=== PATIENT | female | born 1990 | race American Indian/Alaskan Native ===

== ENCOUNTER 2016-11-19 00:28 | Emergency (ER) | payer MEDICAID ==
[2016-11-19] MEDS ORDERED: TYLENOL PO ONE (03:44)
[2016-11-19] MEDS ORDERED: ZOFRAN ODT PO ONE (03:45)
[2016-11-19 04:34] LABS: Hematocrit 31.9 % (30.3-42.9); Hemoglobin 10.2 gm/dl (10.1-14.3); Mean Corpuscular HGB Conc 32 % (30-34); Mean Corpuscular Volume 80 fl (79-97); Platelet Count 359 K/mm3 (140-440); Red Blood Count 4.02 M/mm3 (3.65-5.03); Red Cell Distribution Width 17.5 % (13.2-15.2); White Blood Count 10.1 K/mm3 (4.5-11.0)
[2016-11-19 04:35] LABS: Blood Urea Nitrogen 9 mg/dL (7-17); Calcium 9.3 mg/dL (8.4-10.2); Carbon Dioxide 21 mmol/L (22-30); Glucose 105 mg/dL (65-100)
[2016-11-19 04:36] LABS: Anion Gap 20 mmol/L; Chloride 96.5 mmol/L (98-107); Sodium 133 mmol/L (137-145)
[2016-11-19 04:37] LABS: Mean Corpuscular Hemoglobin 25 pg (28-32)
[2016-11-19 08:47] LABS: Bilirubin,Urine NEG (Negative); Blood,Urine NEG (Negative); Ketones,Urine NEG (Negative); Leukocyte Esterase,Urine SM (Negative); Mucus,Urine FEW /HPF; Nitrite,Urine NEG (Negative); Protein,Urine <15 mg/dL mg/dL (Negative); Urobilinogen,Urine < 2.0 mg/dL (<2.0)
[2016-11-19 11:54] VITALS: BP 110/74
--- NOTE | 2016-11-19 12:34 | Emergency Department Report ---
ED Abdominal Pain HPI - General Chief Complaint: Headache Stated Complaint: 11 WKS W/POSS HIGH BP/DIZZY/HEADACHE Time Seen by Provider: 11/19/16 12:14 Source: patient Mode of arrival: Ambulatory Limitations: No Limitations - History of Present Illness Initial Comments: Patient is a 26-year-old female with no past medical history, at 11 weeks gestation presenting with 1 day of lower abdominal cramping. Patient reports intermittent in, dull, achy pain similar to [place]. Associated headache , nausea, and increased urinary frequency. Patient has taken diclegis for nausea and vomiting at home with some relief. Patient has care, takes vitamins, does not smoke, drink, or use illicit drugs. Otherwise no fevers, chills, vision changes, vomiting, chest pain, shortness of breath, vaginal fluid loss, vaginal bleeding, trauma, falls, travel, or sick contacts. Severity scale (0 -10): 8 - Related Data Previous Rx's Medication Instructions Recorded Last Taken Type Nitrofurantoin [place]/M-Cryst 100 mg PO ONCE #14 capsule 11/19/16 Unknown Rx [Macrobid CAP] Allergies Allergy/AdvReac Type Severity Reaction Status Date / Time No Known Allergies Allergy Verified 09/15/13 11:44 ED Review of Systems ROS: Stated complaint: 11 WKS W/POSS HIGH BP/DIZZY/HEADACHE Other details as noted in HPI Comment: All other systems reviewed and negative ED Past Medical Hx - Past Medical History Previous Medical History?: Yes Additional medical history: Swollen [place] 2007 - Social History Smoking Status: Never Smoker Substance Use Type: None - Medications Home Medications: Home Medications Medication Instructions Recorded Confirmed Last Taken Type Nitrofurantoin [place]/M-Cryst 100 mg PO ONCE #14 capsule 11/19/16 Unknown Rx [Macrobid CAP] ED Physical Exam - General Limitations: No Limitations General appearance: alert, in no apparent distress - Head Head exam: Present: atraumatic, normocephalic - Eye Eye exam: Present: normal appearance, PERRL, EOMI Pupils: Present: normal accommodation - ENT ENT exam: Present: normal exam, mucous membranes moist - Neck Neck exam: Present: normal inspection. Absent: tenderness - Respiratory Respiratory exam: Present: normal lung sounds bilaterally. Absent: respiratory distress, wheezes, rhonchi, stridor - Cardiovascular Cardiovascular Exam: Present: regular rate, normal rhythm, normal heart sounds. Absent: irregular rhythm, systolic murmur, diastolic murmur, rubs, gallop - GI/Abdominal GI/Abdominal exam: Present: soft, normal bowel sounds. Absent: distended, tenderness, guarding, rebound, rigid - Extremities Exam Extremities exam: Present: normal inspection - Back Exam Back exam: Present: normal inspection, full ROM. Absent: CVA tenderness (R), CVA tenderness (L) - Neurological Exam Neurological exam: Present: alert, oriented X3 - Psychiatric Psychiatric exam: Present: normal affect, normal mood - Skin Skin exam: Present: warm, dry, intact, normal color. Absent: rash ED Course Vital Signs 11/19/16 11/19/16 11/19/16 03:28 03:50 11:52 Temperature 98.7 F 97.8 F Pulse Rate 66 73 Respiratory 18 20 16 Rate Blood Pressure 115/76 Blood Pressure 110/74 [Right] O2 Sat by Pulse 100 100 Oximetry ED Medical Decision Making - Lab Data Result diagrams: 11/19/16 04:03 11/19/16 04:03 - Radiology Data Radiology results: report reviewed ultrasound: Single live IUP noted heart rate was 60 bpm, 11 weeks 5 days - Medical Decision Making Results discussed with patient, patient given macrobid 100mg PO tab x 1 dose here in ED Pt to follow up with PMD and information technology specialist this week Critical care attestation.: If time is entered above; I have spent that time in minutes in the direct care of this critically ill patient, excluding procedure time. ED Disposition Clinical Impression: Threatened , Headache, Nausea and vomiting during , UTI ( urinary tract infection) during Disposition: -01 TO HOME OR SELFCARE Is pt being admited?: No Condition: Stable Instructions: Threatened Miscarriage (ED), Morning Sickness (ED), Urinary Tract Infection in Women (ED), Acute Headache (ED) Prescriptions: Nitrofurantoin [place]/M-Cryst [Macrobid CAP] 100 mg PO ONCE #14 capsule Referrals: PRIMARY CARE, [Primary Care Provider] - 3-5 Days
--- NOTE | 2016-11-19 13:07 | Ultrasound Report ---
OB ultrasound: Cramping with threatened . Transabdominal imaging demonstrates a uterus measuring approximately 10.9 x 1.3 x 11.8 cm. There is an intrauterine gestation the crown-rump length of 49.9 mm and is equivalent to 11 week 5 day gestation. There is heart motion of 163 beats per minute as well as motion. No free fluid. The left ovary measures 2 cm and the right 2.2 cm. Impressions: IUP with no apparent complications noted.
[2016-11-19 13:28] LABS: Alanine Aminotransferase 15 units/L (7-56); Albumin 3.7 g/dL (3.9-5); Albumin/Globulin Ratio 1.2 %; Alkaline Phosphatase 79 units/L (35-129); Bilirubin,Total < 0.20 mg/dL (0.1-1.2); Total Protein 6.9 g/dL (6.3-8.2)
[2016-11-19 13:31] LABS: Bilirubin,Direct < 0.2 mg/dL (0-0.2)
[2016-11-19] MEDS ORDERED: MACROBID PO ONE (13:36)
== END 2016-11-19 13:58 | disposition home or self-care (01) ==
LOC: ED 00:28
DX: O20.0 Threatened abortion (principal); O23.31 Infections of other parts of urinary tract in pregnancy, first trimester; O21.9 Vomiting of pregnancy, unspecified; R11.0 Nausea
CPT/HCPCS: 36415; 76801; 80048; 80074; 81001; 84702; 85027; 99284; Q0162

== ENCOUNTER 2017-04-12 20:08 | Outpatient (CLI) | payer MEDICAID ==
[2017-04-12 21:13] LABS: Hematocrit 26.9 % (30.3-42.9); Hemoglobin 8.7 gm/dl (10.1-14.3); Mean Corpuscular HGB Conc 32 % (30-34); Mean Corpuscular Volume 78 fl (79-97); Platelet Count 433 K/mm3 (140-440); Red Blood Count 3.45 M/mm3 (3.65-5.03); Red Cell Distribution Width 15.7 % (13.2-15.2); White Blood Count 10.9 K/mm3 (4.5-11.0)
[2017-04-12] MEDS ORDERED: LACTATED RINGERS 1,000 ML IV ONE (21:14)
[2017-04-12 21:24] LABS: Mean Corpuscular Hemoglobin 25 pg (28-32)
[2017-04-12] MEDS ORDERED: STADOL IV ONE (21:26)
[2017-04-12 22:30] VITALS: BP 97/51
[2017-04-13] MEDS ORDERED: LACTATED RINGERS 1,000 ML ONE (01:09)
[2017-04-13] MEDS ORDERED: LACTATED RINGERS 1,000 ML IV ONE (01:10)
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
== END 2017-04-13 00:21 | disposition home or self-care (01) ==
LOC: TRG 20:08
PROVIDERS: ATTEND Obstetrics & Gynecology
DX: O47.03 False labor before 37 completed weeks of gestation, third trimester (principal); S39.91XD Unspecified injury of abdomen, subsequent encounter; V89.2XXD Person injured in unspecified motor-vehicle accident, traffic, subsequent encounter; Z3A.32 32 weeks gestation of pregnancy
CPT/HCPCS: 36415; 59025; 76816; 85027; 96360; 96361; J0595; J7120

== ENCOUNTER 2017-05-09 02:16 | Outpatient (CLI) | payer MEDICAID ==
[2017-05-09 02:21] VITALS: BP 124/67
[2017-05-09] MEDS ORDERED: LACTATED RINGERS 1,000 ML IV ONE (02:33)
[2017-05-09] MEDS ORDERED: BRETHINE SUB-Q ONE (02:53)
== END 2017-05-09 05:04 | disposition home or self-care (01) ==
LOC: TRG 02:16
PROVIDERS: ATTEND Obstetrics & Gynecology
DX: O62.9 Abnormality of forces of labor, unspecified (principal); Z3A.36 36 weeks gestation of pregnancy
CPT/HCPCS: 59025; 96360; 96372; J3105; J7120

== ENCOUNTER 2018-12-09 09:15 | Emergency (ER) | payer MEDICAID, OTHER ==
[2018-12-09 09:40] VITALS: BP 99/66
[2018-12-09 10:14] LABS: Basophils # (Auto) 0.1 K/mm3 (0.0-0.1); Basophils % (Auto) 0.7 % (0.0-1.8); Eosinophils # (Auto) 0.4 K/mm3 (0.0-0.4); Eosinophils % (Auto) 5.2 % (0.0-4.3); Hematocrit 35.4 % (30.3-42.9); Hemoglobin 11.7 gm/dl (10.1-14.3); Lymphocytes # (Auto) 1.9 K/mm3 (1.2-5.4); Lymphocytes % (Auto) 22.4 % (13.4-35.0); Mean Corpuscular HGB Conc 33 % (30-34); Mean Corpuscular Volume 83 fl (79-97); Monocytes # (Auto) 0.6 K/mm3 (0.0-0.8); Monocytes % (Auto) 6.9 % (0.0-7.3); Platelet Count 320 K/mm3 (140-440); Red Blood Count 4.27 M/mm3 (3.65-5.03)
[2018-12-09 10:18] LABS: Bacteria,Urine 1+ /HPF (Negative); Bilirubin,Urine NEG (Negative); Blood,Urine LG (Negative); Color,Urine Yellow (Yellow); Mucus,Urine 2+ /HPF; Protein,Urine <15 mg/dL mg/dL (Negative); Urobilinogen,Urine < 2.0 mg/dL (<2.0)
--- NOTE | 2018-12-09 10:27 | Emergency Department Report ---
ED Female HPI - General Chief complaint: Vaginal Bleeding Stated complaint: 11WKS /BLEEDING/DIZZINESS Time Seen by Provider: 12/09/18 09:48 Source: patient Mode of arrival: Ambulatory Limitations: No Limitations - History of Present Illness Initial comments: Patient is a 20-year-old female presents to the ED complaining of pelvic cramping and bleeding this yesterday. Patient states that her last menstrual period was made September 13 6018. Patient states she was seen at the clinic sometime in October the performed her test which was positive. Patient states that she has not been back to see an PRESS [facility]ER for this due to insurance issues. MD Complaint: vaginal bleeding, pelvic pain Radiation: non-radiating Severity: moderate Severity scale (0 -10): 5 Quality: cramping, aching Consistency: intermittent Improves with: none - Related Data Previous Rx's Medication Instructions Recorded Last Taken Type Nitrofurantoin [place]/M-Cryst 100 mg PO ONCE #14 capsule 11/19/16 Unknown Rx [Macrobid CAP] Ibuprofen [Motrin] 800 mg PO Q8HR #30 tablet 12/09/18 Unknown Rx Allergies Allergy/AdvReac Type Severity Reaction Status Date / Time No Known Allergies Allergy Verified 12/09/18 09:22 ED Review of Systems ROS: Stated complaint: 11WKS /BLEEDING/DIZZINESS Other details as noted in HPI Comment: All other systems reviewed and negative ED Past Medical Hx - Past Medical History Hx Hypertension: No Hx Diabetes: No Hx Deep Vein Thrombosis: No Hx Renal Disease: Yes (kidney stones-05/2016) Hx Sickle Cell Disease: No Hx Seizures: No Hx Asthma: No Hx HIV: No Additional medical history: Swollen [place] 2007 - Surgical History Past Surgical History?: No - Social History Smoking Status: Never Smoker Substance Use Type: None - Medications Home Medications: Home Medications Medication Instructions Recorded Confirmed Last Taken Type Nitrofurantoin [place]/M-Cryst 100 mg PO ONCE #14 capsule 11/19/16 Unknown Rx [Macrobid CAP] Ibuprofen [Motrin] 800 mg PO Q8HR #30 tablet 12/09/18 Unknown Rx ED Physical Exam - General Limitations: No Limitations General appearance: alert, in no apparent distress - Head Head exam: Present: atraumatic, normocephalic - Eye Eye exam: Present: normal appearance - ENT ENT exam: Present: mucous membranes moist - Neck Neck exam: Present: normal inspection - Respiratory Respiratory exam: Present: normal lung sounds bilaterally. Absent: respiratory distress - Cardiovascular Cardiovascular Exam: Present: regular rate, normal rhythm. Absent: systolic murmur, diastolic murmur, rubs, gallop - GI/Abdominal GI/Abdominal exam: Present: soft, normal bowel sounds. Absent: distended, tenderness, guarding - Extremities Exam Extremities exam: Present: normal inspection - Back Exam Back exam: Present: normal inspection, full ROM. Absent: CVA tenderness (R), CVA tenderness (L) - Neurological Exam Neurological exam: Present: alert, oriented X3, normal gait - Psychiatric Psychiatric exam: Present: normal affect, normal mood - Skin Skin exam: Present: warm, dry, intact, normal color. Absent: rash ED Course Vital Signs 12/09/18 09:38 Temperature 98.1 F Pulse Rate 93 H Respiratory 18 Rate Blood Pressure 99/66 O2 Sat by Pulse 100 Oximetry - Reevaluation(s) Reevaluation #1: 12/09/18 12:23 - Consultations Consultation #1: Discussed patient's case with Dr. Lane from primary [facility] status the patient is able to follow up with her office for outpatient D&C. 12/09/18 12:23 ED Medical Decision Making - Lab Data Result diagrams: 12/09/18 09:48 Laboratory Last Values WBC 8.5 K/mm3 (4.5-11.0) 12/09/18 09:48 RBC 4.27 M/mm3 (3.65-5.03) 12/09/18 09:48 Hgb 11.7 gm/dl (10.1-14.3) 12/09/18 09:48 Hct 35.4 % (30.3-42.9) 12/09/18 09:48 MCV 83 fl (79-97) 12/09/18 09:48 MCH 27 pg (28-32) L 12/09/18 09:48 MCHC 33 % (30-34) 12/09/18 09:48 RDW 15.0 % (13.2-15.2) 12/09/18 09:48 Plt Count 320 K/mm3 (140-440) 12/09/18 09:48 Lymph % (Auto) 22.4 % (13.4-35.0) 12/09/18 09:48 [place] % (Auto) 6.9 % (0.0-7.3) 12/09/18 09:48 Eos % (Auto) 5.2 % (0.0-4.3) H 12/09/18 09:48 Baso % (Auto) 0.7 % (0.0-1.8) 12/09/18 09:48 Lymph # 1.9 K/mm3 (1.2-5.4) 12/09/18 09:48 [place] # 0.6 K/mm3 (0.0-0.8) 12/09/18 09:48 Eos # 0.4 K/mm3 (0.0-0.4) 12/09/18 09:48 Baso # 0.1 K/mm3 (0.0-0.1) 12/09/18 09:48 Seg Neutrophils % 64.8 % (40.0-70.0) 12/09/18 09:48 Seg Neutrophils # 5.5 K/mm3 (1.8-7.7) 12/09/18 09:48 HCG, Qual Positive (Negative) 12/09/18 09:48 HCG, Quant 17476 mIU/mL (0-4) H 12/09/18 09:48 Yellow (Yellow) 12/09/18 09:50 Slightly-cloudy (Clear) 12/09/18 09:50 6.0 (5.0-7.0) 12/09/18 09:50 Ur Specific [place] 1.017 (1.003-1.030) 12/09/18 09:50 <15 mg/dl mg/dL (Negative) 12/09/18 09:50 Neg mg/dL (Negative) 12/09/18 09:50 Neg mg/dL (Negative) 12/09/18 09:50 Lg (Negative) 12/09/18 09:50 Neg (Negative) 12/09/18 09:50 Neg (Negative) 12/09/18 09:50 < 2.0 mg/dL (<2.0) 12/09/18 09:50 Ur Leukocyte Esterase Sm (Negative) 12/09/18 09:50 5.0 /HPF (0.0-6.0) 12/09/18 09:50 7.0 /HPF (0.0-6.0) 12/09/18 09:50 U Epithel Cells (Auto) 9.0 /HPF (0-13.0) 12/09/18 09:50 1+ /HPF (Negative) 12/09/18 09:50 2+ /HPF 12/09/18 09:50 Blood Type O POSITIVE 12/09/18 09:48 Ord Rhogam Gestat Weeks Rh pos WEEKS 12/09/18 09:48 - Radiology Data Radiology results: report reviewed, image reviewed ULTRASOUND OB LESS THAN EQUAL TO 14 WEEKS FETUS ULTRASOUND OB TRANSVAGINAL HISTORY: Pelvic pain and cramping during . Positive urine test. COMPARISON: None. TECHNIQUE: Routine transabdominal and transvaginal OB ultrasound performed. FINDINGS: Uterus: Mildly enlarged measuring 10.5 x 6.9 x 8.5 cm. Gestational Sac: Irregular shape with multiple internal cystic structures echogenic debris Yolk Sac: Normal in appearance. Fetus/Embryo: [place]-rump length of 1.34 cm, corresponding to an estimated gestational age of 7 weeks 5 days. Embryonic/ cardiac activity: Not visualized. Placenta: Too small for evaluation. Amniotic fluid volume: Subjectively appropriate for gestational age. Ovaries: The right ovary is normal in size and appearance with normal blood flow, measuring 3.0 x 1.9 x 2.0 cm. The left ovary is normal in size and appearance with normal blood flow, measuring 2.4 x 1.7 x 1.1 cm. Hypoechoic space-occupying mass in the right ovary with peripheral vascularity is most likely the corpus luteum. Additional findings: None. IMPRESSION Abnormal appearance of an intrauterine gestational sac is identified. A normal yolk sac is identified. There is suggestion of a pole with crown-rump length consistent with a 7 week 4 day . No heart rate could be detected consistent with demise. Please correlate with the patient's clinical presentation and consider close follow-up. Signer Name: Will Phillips Jr, MD Signed: 12/09/2018 11:34 AM Workstation Name: [id number] Transcribed By: MANNIE Dictated By: WILL PHILLIPS JR, MD Electronically Authenticated By: WILL PHILLIPS JR, MD Signed Date/Time: 12/09/18 1134 - Medical Decision Making This 28-year-old female presents with sitter demise per ultrasound findings. C reported above ultrasound noted. Discussed findings with the patient. Patient is an within neck dynamically stable, she is in no acute respiratory distress. All labs are within normal limits H&H stable. Discussed the patient and to call per male woman PRESS W[facility]ER as scheduled appointment follow-up as soon as possible. Bleeding precautions given to patient. Vital signs are normal she is in no acute distress Critical care attestation.: If time is entered above; I have spent that time in minutes in the direct care of this critically ill patient, excluding procedure time. ED Disposition Clinical Impression: demise, Inevitable Disposition: DC-01 TO HOME OR SELFCARE Is pt being admited?: No Does the pt Need Aspirin: No Condition: Stable Instructions: Spontaneous Miscarriage (ED) Additional Instructions: Make sure to follow up with the primary care physician as discussed. Take all your medications as you've been prescribed. If you have any worsening symptoms or develop new symptoms please return to ED immediately. Prescriptions: Ibuprofen [Motrin] 800 mg PO Q8HR #30 tablet Referrals: DREAD PETERS MD [Primary Care Provider] - 3-5 Days [facility] [Provider Group] - 3-[address] MD [Staff Physician] - 3-5 Days Forms: Accompanied Note, Work/School Release Form(ED) Time of Disposition: 13:02
--- NOTE | 2018-12-09 11:39 | Ultrasound Report ---
ULTRASOUND OB LESS THAN EQUAL TO 14 WEEKS FETUS ULTRASOUND OB TRANSVAGINAL HISTORY: Pelvic pain and cramping during . Positive urine test. COMPARISON: None. TECHNIQUE: Routine transabdominal and transvaginal OB ultrasound performed. FINDINGS: Uterus: Mildly enlarged measuring 10.5 x 6.9 x 8.5 cm. Gestational Sac: Irregular shape with multiple internal cystic structures echogenic debris Yolk Sac: Normal in appearance. Fetus/Embryo: [place]-rump length of 1.34 cm, corresponding to an estimated gestational age of 7 weeks 5 days. Embryonic/ cardiac activity: Not visualized. Placenta: Too small for evaluation. Amniotic fluid volume: Subjectively appropriate for gestational age. Ovaries: The right ovary is normal in size and appearance with normal blood flow, measuring 3.0 x 1. 9 x 2.0 cm. The left ovary is normal in size and appearance with normal blood flow, measuring 2.4 x 1.7 x 1.1 cm. Hypoechoic space-occupying mass in the right ovary with peripheral vascularity is most likely the corpus luteum. Additional findings: None. IMPRESSION Abnormal appearance of an intrauterine gestational sac is identified. A normal yolk sac is identified . There is suggestion of a pole with crown-rump length consistent with a 7 week 4 day . No heart rate could be detected consistent with demise. Please correlate with the patie nt's clinical presentation and consider close follow-up. Signer Name: Will Phillips Jr, MD Signed: 12/09/2018 11:34 AM Workstation Name: [id number]
[2018-12-09] MEDS ORDERED: TYLENOL #3 PO ONE (12:23)
[2018-12-09] MEDS ORDERED: IBUPROFEN ONE (13:02)
[2018-12-09] MEDS ORDERED: IBUPROFEN PO ONE (16:04)
== END 2018-12-09 13:26 | disposition home or self-care (01) ==
LOC: ED 09:15
DX: O02.1 Missed abortion (principal); Z87.442 Personal history of urinary calculi; Z79.899 Other long term (current) drug therapy; Z3A.01 Less than 8 weeks gestation of pregnancy
CPT/HCPCS: 36415; 76801; 76817; 81001; 84702; 84703; 85025; 86900; 86901